=== PATIENT | female | born 1980 | race Caucasian/White ===

== ENCOUNTER 2018-10-29 16:10 | Emergency (ER) | payer OTHER ==
[~2018-10-29] VITALS: Ht 172.7 cm; Wt 104.3 kg
[2018-10-29] MEDS ORDERED: CYMBALTA60 MG PO (16:18)
[2018-10-29] MEDS ORDERED: NORCO 5-325 TA1 EACH PO (17:21)
[2018-10-29 18:12] VITALS: BP 134/83
== END 2018-10-29 17:59 | disposition home or self-care (01) ==
LOC: ER 16:10
DX: S92.352A Displaced fracture of fifth metatarsal bone, left foot, initial encounter for closed fracture (principal); W18.39XA Other fall on same level, initial encounter; Y93.89 Activity, other specified; Y92.89 Other specified places as the place of occurrence of the external cause; Y99.8 Other external cause status